=== PATIENT | female | born 2000 | race Asian ===

== ENCOUNTER → 2020-12-08 15:00 | Outpatient (CLI) | payer OTHER, SELFPAY | PROVIDERS: Visit Provider Physician Assistant | DX: N89.8 Other specified noninflammatory disorders of vagina (principal) | CPT/HCPCS: 87210 ==

== ENCOUNTER → 2020-12-08 15:12 | Outpatient (CLI) | payer OTHER, SELFPAY ==
[2020-12-08 17:16] LABS: Hepatitis B Surface Antigen NEGATIVE s/c (NEGATIVE)
[2020-12-08 17:20] LABS: Urine N gonorrhoeae NOT DETECTED
[2020-12-08 17:28] LABS: Urine Chlamydia NOT DETECTED
[2020-12-08 17:48] LABS: HIV 1 & 2 Ab/Ag 4th Gen Combo NEGATIVE (NEGATIVE); Hep C Virus Ab w/Reflex Quant NEGATIVE s/c (NEGATIVE)
[2020-12-09 06:36] LABS: RPR Screen Non Reactive (Non Reactive)
== END ==
PROVIDERS: Referring Provider Physician Assistant; Visit Provider Physician Assistant
DX: N89.8 Other specified noninflammatory disorders of vagina (principal); Z11.3 Encounter for screening for infections with a predominantly sexual mode of transmission
CPT/HCPCS: 36415; 86592; 86803; 87210; 87340; 87389; 87491; 87591

== ENCOUNTER 2021-03-26 10:39 | Emergency (ER) | payer OTHER, SELFPAY ==
[2021-03-26 11:01] VITALS: BP 116/68; PULSE 99; RESP 16; TEMP 36.8; O2SAT 100; BMI 17.8
[2021-03-26 11:27] VITALS: PULSE 102; RESP 16; O2SAT 98
[2021-03-26 11:51] LABS: Appearance Urine UA TURBID; Bilirubin Urine UA NEGATIVE (NEGATIVE); Color Urine UA RED; Glucose Urine UA TRACE g/dL (Negative); Ketones Urine UA NEGATIVE (NEGATIVE); Leukocyte Esterase Urine UA 3+ (NEGATIVE); Nitrite Urine UA NEGATIVE (Negative); Occult Blood Urine UA 3+ (Negative); Protein Urine UA 3+ (Negative); Urobilinogen Urine UA 0.2 E.U./dL (0.2)
[2021-03-26 11:53] LABS: Ictotest Urine Negative (Negative); Pregnancy Test Urine Negative (Negative)
[2021-03-26 11:54] LABS: Bacteria Urine Moderate (10-30); Culture Indicated Urine Specimen Cultured; RBC Urine >100/HPF (0-5/HPF); Squamous Epithelial Cell Urine 1-5 /HPF (0-5/HPF); Transitional Epi Cells Urine 1-5/HPF (0-5/HPF); WBC Urine >100/HPF (0-5/HPF)
--- NOTE | 2021-03-26 12:32 | DI.US.S_ITS ---
PROCEDURE: US PELVIC COMPLETE INDICATIONS: PAIN, DISCHARGE TECHNIQUE: Real-time scanning was performed of the pelvic organs, with image documentation. Additional endovaginal scanning was necessary due to incomplete visualization of the adnexal and endometrial structures by transabdominal scanning. COMPARISON: None. FINDINGS: Uterus: Uterus is normal in size at 7.1 x 3.2 x 4.4 cm. The endometrium measures 6 mm in combined thickness. The IUD is seen at its expected location. Incidental note is made of a nabothian cyst. Ovaries: The right ovary measures 3.1 x 1.3 by 1.6 cm. The right ovary demonstrates a normal appearance. The left ovary measures 3.8 x 2.5 x 3.2 cm and demonstrates a simple appearing cystic follicle that measures 2.6 cm, which is considered to be within physiologic limits. Normal appearing arterial waveforms are confirmed to each ovary. Other: No pathologic free abdominal or pelvic fluid. IMPRESSION: Unremarkable study, without an imaging explanation found for the patient's presenting symptoms. The IUD is seen at its expected location. Dictated by: Rogers Rodrigues M.D. on 03/26/2021 at 12:22 Approved by: Rogers Rodrigues M.D. on 03/26/2021 at 12:25
--- NOTE | 2021-03-26 13:16 | ED.FEMALEGU ---
HPI - Female Genitourinary General Chief complaint: Urogenital-Female Stated complaint: Bad UTI, on antibiotics but getting worse Time Seen by Provider: 03/26/21 10:48 Source: patient Mode of arrival: Ambulatory History of Present Illness HPI Narrative: 20-year-old female nonsmoker with noncontributory medical history presents with her significant other and a chief complaint of increasing severity of a urinary tract infection over the past few days. She initially started with urinary frequency and urgency as well as dysuria and has developed hematuria. She had been seen and evaluated as an outpatient and had a urine specimen convincing for UTI and was started on nitrofurantoin. Since then she has continued to have urinary symptoms but has developed increasing suprapubic tenderness and now has some bilateral flank pain. Additionally, she has had vaginal discharge. She is sexually active and without any new partners Related Data Home Medications Medication Instructions Recorded Confirmed spironolactone 25 mg tablet 25 mg PO BID 12/08/20 12/08/20 Previous Rx's Medication Instructions Recorded fluconazole 150 mg tablet 150 mg PO ONCE #2 tab 12/08/20 cefpodoxime 200 mg tablet 200 mg PO BID 10 Days #20 tab 03/26/21 doxycycline hyclate 100 mg tablet 100 mg PO BID #20 tab 03/26/21 ondansetron 4 mg disintegrating 4 mg PO TID-QID PRN #10 tab 03/26/21 tablet Allergies Allergy/AdvReac Type Severity Reaction Status Date / Time No Known Drug Allergies Allergy Unverified 12/08/20 14:49 Review of Systems Review of Systems Narrative: GENERAL: Denies chills, fatigue, malaise, fever, sweats. HEENT: Denies sinus pain, ear pain, sore throat, difficulty swallowing, dizziness. RESPIRATORY: Denies dyspnea, cough, wheezing, hemoptysis, sputum. CARDIOVASCULAR: Denies chest pain, palpitations, orthopnea, edema, GASTROINTESTINAL: Denies nausea, vomiting, abdominal pain, diarrhea, constipation, melena. : See HPI MUSCULOSKELETAL: denies weakness, joint pain, or bony pain SKIN: Denies rash, skin lesions, or other NEUROLOGIC: Denies weakness, headache, numbness, change in speech, confusion, seizures, incoordination. PSYCHIATRIC: No concerning psychosocial issues. 12 point review of systems is negative except for those stated above Patient History Medical History No active medical problems alcohol intake frequency: holidays/special occasions only Substance Use Type: does not use Exam Narrative Exam Narrative: GENERAL: [20] year old patient appears stated age. Well-developed patient, in mild distress. HEAD: Atraumatic. Normocephalic. EYES: Pupils equal round and reactive. Extraocular motions intact. No scleral icterus. No injection or drainage. ENT: Nose without bleeding, purulent drainage. Throat without erythema, tonsillar hypertrophy or exudate. Airway patent. NECK: Trachea midline. Non tender CARDIOVASCULAR: Regular rate and rhythm without murmurs, gallops, or rubs. RESPIRATORY: Clear to auscultation. Breath sounds equal bilaterally. No wheezes, rales, or rhonchi. GASTROINTESTINAL: Abdomen soft, non-tender, nondistended. PELVIC: Moderate yellowish discharge from a closed cervical os, patient tender to palpation in bilateral adnexa, no fullness or masses noted. 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 BACK: Nontender without deformity or crepitance. No flank tenderness. NEURO: AOx3. SKIN: No rash or erythema of visible areas Initial Vital Signs Initial Vital Signs: Vital Signs Temperature 98.2 F 03/26/21 11:01 Pulse Rate 99 H 03/26/21 11:01 Respiratory Rate 16 03/26/21 11:01 Blood Pressure 116/68 03/26/21 11:01 Pulse Oximetry 100 03/26/21 11:01 Course Orders Ordered: ED Orders 03/26/21 11:33 Ictotest Urine Stat Test Urine Stat Urinalysis and Microscopic Stat Urine Culture Stat 03/26/21 12:29 Genital Culture Stat 03/26/21 12:32 US pelvic complete Stat Discontinued Medications Ceftriaxone Sodium (Ceftriaxone 1,000 Mg Vial) 500 mg IM NOW ONE Stop: 03/26/21 13:17 Last Admin: 03/26/21 13:32 Dose: 500 mg Documented by: ARTEMIO Lidocaine HCl (Lidocaine 1% 20 Ml) 2.1 ml INJ NOW ONE Stop: 03/26/21 13:17 Last Admin: 03/26/21 13:32 Dose: 2.1 ml Documented by: ARTEMIO Vital Signs Vital signs: Vital Signs - 8 hr 03/26/21 11:01 03/26/21 11:27 03/26/21 13:59 Temperature 98.2 F Pulse Rate 99 H 102 H 94 H Respiratory Rate 16 16 16 Blood Pressure 116/68 110/78 Pulse Oximetry 100 98 100 MDM - Female Genitourinary Lab Data Labs: Lab Results 03/26/21 03/26/21 03/26/21 Range/Units 11:33 11:33 11:33 Urine Color Red Urine Appearance Turbid Urine pH 7.0 (4.5-8.0) Ur Specific [place] 1.020 (1.000-1.035) Urine Protein 3+ H (Negative) Urine Glucose (UA) Trace H (Negative) g/dL Urine Ketones Negative (NEGATIVE) Urine Occult Blood 3+ H (Negative) Urine Nitrate Negative (Negative) Urine Bilirubin Negative (NEGATIVE) Ur Bilirubin Confirm Negative (Negative) Urine Urobilinogen 0.2 (0.2) E.U./dL Ur Leukocyte Esterase 3+ H (NEGATIVE) Urine RBC >100/hpf H (0-5/HPF) Urine WBC >100/hpf H (0-5/HPF) Ur Squamous Epith Cells 1-5 /hpf (0-5/HPF) Ur Transition Epith Cell 1-5/hpf (0-5/HPF) Urine Bacteria Moderate (10-30) H (None) Ur Culture Indicated? 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 Procedure: US pelvic complete Ordering Provider: Jaspreet Cuevas D.O. PROCEDURE:? US PELVIC COMPLETE ? INDICATIONS:? PAIN, DISCHARGE ? TECHNIQUE:? Real-time scanning was performed of the pelvic organs, with image documentation.? Additional endovaginal scanning was necessary due to incomplete visualization of the adnexal and endometrial structures by transabdominal scanning.? ? COMPARISON:? None. ? FINDINGS:? ?? Uterus:? Uterus is normal in size at 7.1 x 3.2 x 4.4 cm.? The endometrium measures 6 mm in combined thickness.? The IUD is seen at its expected location.? Incidental note is made of a nabothian cyst. ? Ovaries:? The right ovary measures 3.1 x 1.3 by 1.6 cm.? The right ovary demonstrates a normal appearance.? ? The left ovary measures 3.8 x 2.5 x 3.2 cm and demonstrates a simple appearing cystic follicle that measures 2.6 cm, which is considered to be within physiologic limits.? ? Normal appearing arterial waveforms are confirmed to each ovary.? ? Other: ? No pathologic free abdominal or pelvic fluid. ? ? IMPRESSION:? Unremarkable study, without an imaging explanation found for the patient's presenting symptoms. ? The IUD is seen at its expected location.? ? ? Dictated by: Rogers Rodrigues M.D. on 03/26/2021 at 12:22 ? ? Approved by: Rogers Rodrigues M.D. on 03/26/2021 at 12:25 ? Discharge Plan Departure Patient Disposition: Home Clinical Impression: Acute pelvic inflammatory disease (PID) Urinary tract infection Qualifiers: Urinary tract infection type: acute cystitis Hematuria presence: with hematuria Qualified Code(s): N30.01 - Acute cystitis with hematuria Instructions: DI for Pelvic Inflammatory Disease (PID), DI for Urinary Tract Infection (UTI) Activity Restrictions/Additional Instructions: *You have been diagnosed with [urinary tract infection and likely pelvic inflammatory disease. Your ultrasound is very reassuring and there is no problem with the placement of your IUD *What to do: *Please continue to take your regular medications as directed. [x ] New medication prescriptions sent to your pharmacy: [ [facility]] [ ] New medication written as a paper prescription [ ] No new medications given *Please follow up with your primary care provider in 2-3 days, call for an appointment. Let them know you were seen in the Emergency Department and that we ask that you be seen in follow up. We will electronically transmit a record of today's note if your PCP is in our system *If you do not have a primary care provider please contact the [facility] Resource line at [phone]. They will ask some questions about your medical history and help get you set up with a doctor in the community. *Return to Emergency Department if you should have any new, worsening or concerning symptoms, such as [fever greater than 101 F, shaking chills, worsening pain, persistent vomiting or other bothersome symptoms] Prescriptions: New cefpodoxime 200 mg tablet 200 mg PO BID 10 Days Qty: 20 RF: 0 doxycycline hyclate 100 mg tablet 100 mg PO BID Qty: 20 RF: 0 ondansetron 4 mg tablet,disintegrating 4 mg PO TID-QID PRN (Reason: nausea and vomiting) Qty: 10 RF: 0 No Action spironolactone 25 mg tablet 25 mg PO BID RF: 0 fluconazole 150 mg tablet 150 mg PO ONCE Qty: 2 RF: 0 Referrals: Miscellaneous,Doctor, MD [Primary Care Provider] -
[2021-03-26] MEDS: cefTRIAXone 1,000 MG VIAL 500 MG IM (13:32)
[2021-03-26] MEDS: LIDOCAINE 1% 20 ML 2.1 ML INJ (13:32)
[2021-03-26 13:59] VITALS: BP 110/78; PULSE 94; RESP 16; O2SAT 100
== END 2021-03-26 13:59 | disposition home or self-care (01) ==
PROVIDERS: Emergency Provider Emergency Medicine
DX: N73.8 Other specified female pelvic inflammatory diseases (principal); N30.01 Acute cystitis with hematuria
CPT/HCPCS: 76830; 76856; 81001; 81003; 81025; 87070; 87077; 87086; 87147; 87205; 87252; 96372; 99283; 99284; J0696